=== PATIENT | male | born 1975 | race African-American/Black ===

== ENCOUNTER 2020-08-05 11:11 | Emergency (ER) | payer OTHER ==
[2020-08-05] MEDS ORDERED: CYCLOBENZAPRINE5 MG PO (15:15)
== END 2020-08-05 15:20 | disposition home or self-care (01) ==
LOC: ER1 11:11
DX: M54.5 Low back pain (principal); Z88.8 Allergy status to other drugs, medicaments and biological substances; Z88.6 Allergy status to analgesic agent
CPT/HCPCS: 72100; 96372; 99283; J1100; J1885